=== PATIENT | male | born 1950 | race Caucasian/White ===

== ENCOUNTER 2021-08-15 13:46 | Outpatient (CLI) | payer BC, MEDICARE | END 2021-08-15 13:47 | disposition home or self-care (01) | LOC: CSHMRI 13:46 | PROVIDERS: ATTEND Radiology Radiation Oncology | DX: C71.9 Malignant neoplasm of brain, unspecified (principal); Z98.890 Other specified postprocedural states; Z92.21 Personal history of antineoplastic chemotherapy; Z92.3 Personal history of irradiation; C71.1 Malignant neoplasm of frontal lobe | CPT/HCPCS: 70553 ==

== ENCOUNTER 2021-10-13 11:33 | Outpatient (CLI) | payer BC ==
[2021-10-13] MEDS ORDERED: Magnevist 469MG/ML 20 ML VIAL ONE (12:05)
== END 2021-10-13 11:34 | disposition home or self-care (01) ==
LOC: CSHMRI 11:33
PROVIDERS: ATTEND Radiology Radiation Oncology
DX: C71.9 Malignant neoplasm of brain, unspecified (principal); Z98.890 Other specified postprocedural states; Z92.3 Personal history of irradiation; Z92.21 Personal history of antineoplastic chemotherapy; C71.1 Malignant neoplasm of frontal lobe
CPT/HCPCS: 70553

== ENCOUNTER 2022-01-26 10:16 | Outpatient (CLI) | payer BC ==
[2022-01-26] MEDS ORDERED: Magnevist 469MG/ML 20 ML VIAL ONE (12:32)
== END 2022-01-26 10:17 | disposition home or self-care (01) ==
LOC: CSHMRI 10:16
PROVIDERS: ATTEND Radiology Radiation Oncology
DX: C71.9 Malignant neoplasm of brain, unspecified (principal); Z98.890 Other specified postprocedural states; R94.02 Abnormal brain scan
CPT/HCPCS: 70553; 82565; A9579

== ENCOUNTER 2022-03-31 12:43 | Outpatient (CLI) | payer BC ==
[~2022-03-31 12:43] MED LIST: Magnevist 469MG/ML 20 ML VIAL ONE
== END 2022-03-31 12:44 | disposition home or self-care (01) ==
LOC: CSHMRI 12:43
PROVIDERS: ATTEND Radiology Radiation Oncology
DX: C71.9 Malignant neoplasm of brain, unspecified (principal); Z98.890 Other specified postprocedural states; Z92.3 Personal history of irradiation; C71.1 Malignant neoplasm of frontal lobe
CPT/HCPCS: 70553

== ENCOUNTER 2022-03-31 12:52 | Outpatient (CLI) | payer BC ==
[2022-03-31 16:11] LABS: Hemoglobin 11.1 g/dL (13.5-17.5); Mean Corpuscular HGB CONC 32.9 g/dL (32.0-36.0); Mean Corpuscular Hemoglobin 33.7 pg (27.0-33.0); Mean Corpuscular Volume 102.4 fl (81.2-95.1); Mean Platelet Volume 9.9 fl (7.4-10.4); Platelet Count 102 10x3/uL (150-450); RBC Distribution Width 14.5 % (11.5-14.5); Red Blood Cell (RBC) Count 3.29 10x6/uL (4.32-5.72); White Blood Cell (WBC) Count 6.4 10x3/uL (3.5-10.5)
[2022-03-31 16:34] LABS: Anion Gap 15 mmol/L (10-20); BUN (Urea Nitrogen) 21 mg/dL (8.4-25.7); Calc. Creatinine Clearance 0 mL/min (70-130); Calcium 8.8 mg/dL (7.8-10.44); Carbon Dioxide 22 mmol/L (23-31); Chloride 106 mmol/L (98-107); Estimated GFR 96; Glucose 165 mg/dL (83-110); Potassium 4.1 mmol/L (3.5-5.1); Sodium 139 mmol/L (136-145)
== END 2022-03-31 12:53 | disposition home or self-care (01) ==
LOC: CSHLAB 12:52
PROVIDERS: ATTEND Surgery
DX: Z01.812 Encounter for preprocedural laboratory examination (principal); C71.9 Malignant neoplasm of brain, unspecified; E11.9 Type 2 diabetes mellitus without complications
CPT/HCPCS: 80048; 85027

== ENCOUNTER 2022-04-01 05:37 | Day surgery (SDC) | payer BC ==
[2022-03-31 09:50] VITALS: BMI 25.3
[2022-04-01] MEDS ORDERED: Bupivacaine PF 0.5% 30 ML VIAL ONE (06:25)
[2022-04-01] MEDS ORDERED: Clindamycin/D5W 600 mg/50 ml Premix Bag ONE (06:52)
[2022-04-01] MEDS ORDERED: PROPOFOL 20 ML ONE (07:10)
[2022-04-01] MEDS ORDERED: Ondansetron PF 4 MG/2 ML Vial ONE (07:11)
[2022-04-01] MEDS ORDERED: Dexamethasone 4 mg/ml Vial ONE (07:11)
[2022-04-01] MEDS ORDERED: Fentanyl 100 MCG/2 ML VIAL ONE (07:11)
[2022-04-01] MEDS ORDERED: Lidocaine 1% PF 5 ML VIAL ONE (07:11)
[2022-04-01] MEDS ORDERED: HYDROcodone/Acetaminophen 5/325 mg Tablet PO PRN (08:26)
[2022-04-01] MEDS ORDERED: Acetaminophen 325 MG TAB PO PRN (08:26)
[2022-04-01] MEDS ORDERED: EPINEPHrine 1 MG/ML AMP ONE (08:58)
== END 2022-04-01 09:10 | disposition home or self-care (01) ==
LOC: CSHSDC 05:37
PROVIDERS: ATTEND Surgery
PROC: 02HV33Z Insertion of Infusion Device into Superior Vena Cava, Percutaneous Approach (ICD-10-PCS; principal; 2022-04-01)
PROC: B518ZZA Fluoroscopy of Superior Vena Cava, Guidance (ICD-10-PCS; principal; 2022-04-01)
DX: C71.9 Malignant neoplasm of brain, unspecified (principal); E11.9 Type 2 diabetes mellitus without complications; E78.1 Pure hyperglyceridemia; K76.0 Fatty (change of) liver, not elsewhere classified; Z79.899 Other long term (current) drug therapy; Z88.0 Allergy status to penicillin; Z98.890 Other specified postprocedural states
CPT/HCPCS: 71045; C1788; J0171; J1100; J1642; J2405; J2704; J3010; J3490; S0020

== ENCOUNTER 2022-06-17 13:59 | Outpatient (CLI) | payer BC | END 2022-06-17 14:00 | disposition home or self-care (01) | LOC: CSHMRI 13:59 | PROVIDERS: ATTEND Internal Medicine Hematology & Oncology | DX: C71.2 Malignant neoplasm of temporal lobe (principal); C71.1 Malignant neoplasm of frontal lobe; G93.89 Other specified disorders of brain | CPT/HCPCS: 70553; A9579 ==

== ENCOUNTER 2022-12-11 09:13 | Outpatient (CLI) | payer BC ==
[2022-12-11] MEDS ORDERED: Magnevist 469MG/ML 20 ML VIAL ONE (14:14)
== END 2022-12-11 09:14 | disposition home or self-care (01) ==
LOC: CSHMRI 09:13
PROVIDERS: ATTEND Internal Medicine Hematology & Oncology
DX: C71.2 Malignant neoplasm of temporal lobe (principal); G93.9 Disorder of brain, unspecified
CPT/HCPCS: 70553; A9579